=== PATIENT | male | born 1995 | race Caucasian/White ===

== ENCOUNTER 2018-12-08 13:59 | Emergency (ER) | payer OTHER ==
[~2018-12-08] VITALS: Ht 182.9 cm; Wt 93.0 kg
[~2018-12-08 13:59] MED LIST: AMO500 PO
[2018-12-08 14:15] VITALS: BP 133/65; Ht 182.9 cm; Wt 93.0 kg
== END 2018-12-08 15:44 | disposition home or self-care (01) ==
LOC: ED 13:59
DX: S61.431A Puncture wound without foreign body of right hand, initial encounter (principal); S60.410A Abrasion of right index finger, initial encounter; S30.811A Abrasion of abdominal wall, initial encounter; Z90.89 Acquired absence of other organs; W54.0XXA Bitten by dog, initial encounter; Y93.89 Activity, other specified; Y92.830 Public park as the place of occurrence of the external cause; Y99.8 Other external cause status
CPT/HCPCS: Q0092

== ENCOUNTER 2020-06-29 10:35 | Emergency (ER) | payer MEDICAID ==
[~2020-06-29] VITALS: Ht 182.9 cm; Wt 92.5 kg
[2020-06-29 11:10] VITALS: Ht 182.9 cm; Wt 92.5 kg
[2020-06-29 16:43] VITALS: BP 112/56
== END 2020-06-29 16:43 | disposition home or self-care (01) ==
LOC: ED 10:35
DX: F13.239 Sedative, hypnotic or anxiolytic dependence with withdrawal, unspecified (principal)
CPT/HCPCS: J1200